=== PATIENT | female | born 1995 | race Caucasian/White ===

== ENCOUNTER → 2020-01-18 23:00 | Observation (INO) ==
[2020-01-18 21:08] LABS: Bilirubin,Urine Negative (Negative); Blood,Urine Negative (Negative); Clarity,Urine Clear (Clear); Color,Urine Yellow (Yellow); Glucose,Urine (UA) Normal (Normal); Ketones,Urine Negative (Negative); Leukocyte Esterase,Urine Negative (Negative); Nitrite,Urine Negative (Negative); Protein,Urine Negative (Neg-Trace); Specific Gravity,Urine 1.022 (1.010-1.025); Urobilinogen,Urine Normal (Normal)
[2020-01-18 21:50] LABS: Basophils # 0.1 K/mcL (0.0-0.2); Basophils % 0.3 %; Eosinophils # 0.1 K/mcL (0.0-0.6); Eosinophils % 0.8 %; Hematocrit 35.2 % (35.3-44.9); Hemoglobin 12.1 g/dL (11.5-15.4); Immature Granulocytes % 0.7 % (0-4); Lymphocytes # 2.3 K/mcL (0.6-4.6); Lymphocytes % 15.8 %; Mean Corpuscular HGB Conc 34.4 g/dL (31.6-35.5); Mean Corpuscular Hemoglobin 31.2 pg (28.0-33.3); Mean Corpuscular Volume 90.7 fL (83.0-100.0); Mean Platelet Volume 10.6 fL (9.4-12.4); Monocytes # 0.8 K/mcL (0.0-1.3); Monocytes % 5.3 %; Neutrophils # 11.3 K/mcL (1.6-8.9); Platelet Count 232 K/mcL (140-400); Red Blood Count 3.88 M/mcL (3.82-4.97); Red Cell Distribution Width 12.9 % (11.5-14.5); Segmented Neutrophils % 77.1 %; White Blood Count 14.7 K/mcL (4.3-11.1)
[~2020-01-18 23:00] MED LIST: hydrOXYzine pamoate 25 MG CAPSULE PO ONE
== END | disposition home or self-care (01) ==
LOC: 1NENULAB
PROVIDERS: ADMIT Advanced Practice Midwife; ATTEND Advanced Practice Midwife

== ENCOUNTER → 2020-03-13 07:40 | Observation (INO) ==
[2020-03-12 21:59] LABS: Bilirubin,Urine Negative (Negative); Blood,Urine Negative (Negative); Clarity,Urine Cloudy (Clear); Color,Urine Yellow (Yellow); Glucose,Urine (UA) Normal (Normal); Ketones,Urine Negative (Negative); Leukocyte Esterase,Urine Small (Negative); Nitrite,Urine Negative (Negative); PH,Urine 6.5 pH Units (5.0-8.0); Protein,Urine Negative (Neg-Trace); Specific Gravity,Urine 1.023 (1.010-1.025); Urobilinogen,Urine Normal (Normal)
[2020-03-12 22:01] LABS: Bacteria,Urine Few per hpf (None-Few); Hyaline Casts,Urine None Seen per lpf (None-Few); RBC,Urine 0-3 per hpf (0-3); Squamous Epithelial Cell,Urine Many per lpf (None-Few)
[2020-03-12 22:49] LABS: Basophils # 0.1 K/mcL (0.0-0.2); Basophils % 0.4 %; Eosinophils # 0.1 K/mcL (0.0-0.6); Eosinophils % 0.5 %; Hematocrit 36.8 % (35.3-44.9); Hemoglobin 12.7 g/dL (11.5-15.4); Immature Granulocytes % 0.9 % (0-4); Lymphocytes # 2.4 K/mcL (0.6-4.6); Lymphocytes % 17.3 %; Mean Corpuscular HGB Conc 34.5 g/dL (31.6-35.5); Mean Corpuscular Hemoglobin 31.5 pg (28.0-33.3); Mean Corpuscular Volume 91.3 fL (83.0-100.0); Mean Platelet Volume 11.2 fL (9.4-12.4); Monocytes # 0.8 K/mcL (0.0-1.3); Monocytes % 6.1 %; Neutrophils # 10.4 K/mcL (1.6-8.9); Platelet Count 225 K/mcL (140-400); Red Blood Count 4.03 M/mcL (3.82-4.97); Red Cell Distribution Width 12.2 % (11.5-14.5); Segmented Neutrophils % 74.8 %; White Blood Count 13.8 K/mcL (4.3-11.1)
[2020-03-12 23:09] LABS: Alanine Aminotransferase 21 Units/L (7-52); Aspartate Amino Transferase 19 Units/L (13-39); BUN/Creatinine Ratio 29 (6-26); Blood Urea Nitrogen 14 mg/dL (6-20); Lactate Dehydrogenase 141 Units/L (140-271); eGFR For African Americans > 60 (> 60); eGFR For Non-African Americans > 60 (> 60)
[2020-03-12 23:23] LABS: Protein/Creatinine Ratio,Urine 0.21 mg/mg (0.00-0.20)
[~2020-03-13 07:40] MED LIST changes: +*HR* FentaNYL (PF) 100 MCG/2 ML VIAL IVP PRN; +Acetaminophen 325 MG TABLET PO PRN; +Acetaminophen/Butalbital/CaffeineTABLET PO PRN; +Betamethasone Acet/SodPhos 30 MG/5 ML VIAL IM SCH; +EPHEDrine 50 MG/ML VIAL IVP PRN; +Epidural Premix (fent/bupiv) 110 ML EP SCH; +Indomethacin 25 MG CAPSULE PO ONE; +NIFEdipine 10 MG CAPSULE PO ONE; +Naloxone 0.4 MG/ML INJ IVP PRN; +Ondansetron 4 MG/2 ML VIAL IVP PRN; +Prenatal Vit/FA 1 EACH TABLET PO SCH; +Ringers Solution, Lactated 1,000 ML IVC ONE; +Ringers Solution, Lactated 1,000 ML ONE; -hydrOXYzine pamoate 25 MG CAPSULE PO ONE
== END | disposition home or self-care (01) ==
LOC: 1NENULAB
PROVIDERS: ADMIT Advanced Practice Midwife; ATTEND Advanced Practice Midwife

== ENCOUNTER 2020-03-13 21:49 | Observation (INO) ==
[2020-03-13] MEDS ORDERED: Betamethasone Acet/SodPhos 30 MG/5 ML VIAL IM SCH (22:00)
== END 2020-03-13 23:05 | disposition home or self-care (01) ==
LOC: 1NENULAB
PROVIDERS: ADMIT Registered Nurse; ATTEND Registered Nurse

== ENCOUNTER 2020-03-15 16:50 | Inpatient (IN) ==
[~2020-03-15 16:50] MED LIST changes: -Acetaminophen 325 MG TABLET PO PRN; -Acetaminophen/Butalbital/CaffeineTABLET PO PRN; -Betamethasone Acet/SodPhos 30 MG/5 ML VIAL IM SCH; -EPHEDrine 50 MG/ML VIAL IVP PRN; -Epidural Premix (fent/bupiv) 110 ML EP SCH; +Famotidine 20 MG/2 ML VIAL IVP PRN; -Indomethacin 25 MG CAPSULE PO ONE; +Lidocaine 1% 20 ML MDV INFILT PRN; +Metoclopramide 10 MG/2 ML VIAL IVP PRN; -NIFEdipine 10 MG CAPSULE PO ONE; +Penicillin G Potassium 5,000,000 UNIT in 0.9 % Sodium Chloride Mini Bag 100 ML IVPB ONE; -Prenatal Vit/FA 1 EACH TABLET PO SCH
[2020-03-15 17:10] LABS: Basophils # 0.1 K/mcL (0.0-0.2); Basophils % 0.6 %; Eosinophils % 0.1 %; Hematocrit 37.2 % (35.3-44.9); Hemoglobin 12.6 g/dL (11.5-15.4); Immature Granulocytes % 2.5 % (0-4); Lymphocytes % 21.2 %; Mean Corpuscular HGB Conc 33.9 g/dL (31.6-35.5); Mean Corpuscular Hemoglobin 31.1 pg (28.0-33.3); Mean Corpuscular Volume 91.9 fL (83.0-100.0); Mean Platelet Volume 11.4 fL (9.4-12.4); Monocytes # 1.1 K/mcL (0.0-1.3); Monocytes % 7.8 %; Neutrophils # 9.7 K/mcL (1.6-8.9); Platelet Count 251 K/mcL (140-400); Red Blood Count 4.05 M/mcL (3.82-4.97); Red Cell Distribution Width 12.4 % (11.5-14.5); Segmented Neutrophils % 67.8 %; White Blood Count 14.2 K/mcL (4.3-11.1)
[2020-03-15 17:13] LABS: Amphetamine Screen,Urine Negative ng/mL (Cutoff=1000); Barbiturate Screen,Urine Negative ng/mL (Cutoff=200); Benzodiazepines Screen,Urine Negative ng/mL (Cutoff=200); Cannabinoid Screen,Urine Negative ng/mL (Cutoff = 50); Cocaine Screen,Urine Negative ng/mL (Cutoff= 300); Opiate Screen,Urine Negative ng/mL (Cutoff=300); Phencyclidine Screen,Urine Negative ng/mL (Cutoff=25)
[2020-03-15] MEDS ORDERED: Naloxone 0.4 MG/ML INJ IVP PRN (17:30)
[2020-03-15] MEDS ORDERED: Ondansetron 4 MG/2 ML VIAL IVP PRN (17:30)
[2020-03-15] MEDS ORDERED: EPHEDrine 50 MG/ML VIAL IVP PRN (17:30)
[2020-03-15] MEDS ORDERED: *HR* FentaNYL (PF) 100 MCG/2 ML VIAL EP ONE (17:30)
[2020-03-15] MEDS ORDERED: Ropivacaine/PF 0.2% 20 ML VIAL EP ONE (17:30)
[2020-03-15] MEDS ORDERED: *HR* FentaNYL (PF) 100 MCG/2 ML VIAL ONE (17:48)
[2020-03-15] MEDS: Ringers Solution, Lactated 1,000 ML IVC SCH (19:42)
[2020-03-15] MEDS: Penicillin G Potassium 2,500,000 UNIT in 0.9 % Sodium Chloride 100 ML IVPB SCH (21:04)
[2020-03-16] MEDS: Penicillin G Potassium 2,500,000 UNIT in 0.9 % Sodium Chloride 100 ML IVPB SCH ×3 (01:02→08:37)
[2020-03-16] MEDS: Epidural Premix (fent/bupiv) 110 ML EP SCH ×2 (01:04→07:51)
[2020-03-16] MEDS: Ringers Solution, Lactated 1,000 ML IVC SCH (05:12)
[2020-03-16] MEDS ORDERED: Oxytocin 20 units/ LR 1000 mL 20 UNIT/1,000 ML BAG IVC ONE (08:31)
[2020-03-16] MEDS ORDERED: Oxytocin 20 units/ LR 1000 mL 20 UNIT/1,000 ML BAG IVC SCH ×2 (08:45→16:02)
[2020-03-16] MEDS ORDERED: *HR* Propofol 200 MG/20 ML VIAL IVP ONE (12:07)
[2020-03-16] MEDS ORDERED: Ringers Solution, Lactated 1,000 ML ONE ×2 (12:14→12:50)
[2020-03-16] MEDS ORDERED: *HR* Oxytocin 10 UNIT/ML VIAL IM ONE ×2 (12:18→12:50)
[2020-03-16] MEDS ORDERED: Ondansetron 4 MG/2 ML VIAL ONE (12:19)
[2020-03-16] MEDS ORDERED: Dexamethasone 4 MG/ML VIAL ONE (12:19)
[2020-03-16] MEDS ORDERED: *HR* Morphine Sulfate/PF 10 MG/10 ML AMPUL ONE (12:20)
[2020-03-16] MEDS ORDERED: *HR* Succinylcholine 200 MG/10 ML VIAL IVP ONE (12:21)
[2020-03-16] MEDS ORDERED: Ibuprofen 400 MG TABLET PO PRN ×2 (12:24→16:02)
[2020-03-16] MEDS ORDERED: *HR* HYDROmorphone (PF) 1 MG/ML SYRINGE IVP PRN ×2 (12:24→16:02)
[2020-03-16] MEDS ORDERED: Morphine Sulfate 2 MG/ML SYRINGE IVP PRN ×2 (12:24→16:02)
[2020-03-16] MEDS ORDERED: *HR* OxyCODONE/APAP 5/325 TABLET PO PRN ×3 (12:24→16:02)
[2020-03-16 12:27] LABS: Cord Venous Blood HCO3 24 mEq/L; Cord Venous Blood PCO2 52 mmHg (27-42); Cord Venous Blood PO2 46 mmHg (15-45)
[2020-03-16 12:33] LABS: Cord Arterial Blood HCO3 19 mEq/L; Cord Arterial Blood Oxygen Sat 99 %
[2020-03-16] MEDS ORDERED: Acetaminophen IV 1,000 MG/100 ML INFUS..BTL IVPB ONE ×2 (14:09→16:02)
[2020-03-16] MEDS ORDERED: Ondansetron 4 MG/2 ML VIAL IVP PRN (16:02)
[2020-03-16] MEDS ORDERED: Metoclopramide 10 MG/2 ML VIAL IVP PRN (16:02)
[2020-03-16] MEDS ORDERED: Sennosides 8.6 MG TABLET PO PRN (16:02)
[2020-03-16] MEDS ORDERED: Simethicone 80 MG TAB.CHEW PO PRN (16:02)
[2020-03-16] MEDS ORDERED: *HR* OxyCODONE/APAP 10/325 TABLET PO PRN (16:02)
[2020-03-16] MEDS ORDERED: Ringers Solution, Lactated 1,000 ML IVC SCH (16:02)
[2020-03-16] MEDS: Ibuprofen 600 MG TABLET PO PRN (21:08)
[2020-03-16] MEDS: metroNIDAZOLE 500 MG TABLET PO SCH (21:08)
[2020-03-16] MEDS: ceFAZolin 2,000 MG in 0.9 % Sodium Chloride 100 ML IVPB SCH (21:10)
[2020-03-17] MEDS: Ibuprofen 600 MG TABLET PO PRN ×3 (04:55→20:50)
[2020-03-17] MEDS: ceFAZolin 2,000 MG in 0.9 % Sodium Chloride 100 ML IVPB SCH (04:56)
[2020-03-17 06:18] LABS: Basophils % 0.2 %; Eosinophils # 0.1 K/mcL (0.0-0.6); Eosinophils % 0.4 %; Hematocrit 31.1 % (35.3-44.9); Hemoglobin 10.7 g/dL (11.5-15.4); Lymphocytes # 2.6 K/mcL (0.6-4.6); Lymphocytes % 15.7 %; Mean Corpuscular HGB Conc 34.4 g/dL (31.6-35.5); Mean Corpuscular Hemoglobin 31.7 pg (28.0-33.3); Mean Platelet Volume 10.9 fL (9.4-12.4); Monocytes % 5.9 %; Neutrophils # 12.6 K/mcL (1.6-8.9); Platelet Count 183 K/mcL (140-400); Red Blood Count 3.38 M/mcL (3.82-4.97); Red Cell Distribution Width 12.3 % (11.5-14.5); Segmented Neutrophils % 76.8 %; White Blood Count 16.4 K/mcL (4.3-11.1)
[2020-03-17] MEDS: Prenatal Vit/FA 1 EACH TABLET PO SCH (07:35)
[2020-03-17] MEDS: metroNIDAZOLE 500 MG TABLET PO SCH ×3 (07:37→20:50)
[2020-03-17] MEDS ORDERED: NON-FORMULARY MEDICATION 1 EACH EACH (Prenatal Vits96/Iron Fum/Folic [Prenatal Tablet] 1 E PO SCH (09:00)
[2020-03-17] MEDS: *HR* HYDROmorphone 2 MG TABLET PO PRN (15:39)
[2020-03-18] MEDS: *HR* HYDROmorphone 2 MG TABLET PO PRN ×2 (01:07→07:37)
[2020-03-18] MEDS: Ibuprofen 600 MG TABLET PO PRN (02:56)
[2020-03-18 07:33] VITALS: BP 118/82
[2020-03-18] MEDS: Prenatal Vit/FA 1 EACH TABLET PO SCH (07:36)
[2020-03-18] MEDS: metroNIDAZOLE 500 MG TABLET PO SCH (07:36)
== END 2020-03-18 11:03 | disposition home or self-care (01) | DRG 788 ==
LOC: 1NENULAB → 1NENUOBS 03-16 15:35
PROVIDERS: ADMIT Registered Nurse; ATTEND Registered Nurse